=== PATIENT | male | born 1990 | race Caucasian/White ===

== ENCOUNTER 2023-06-21 22:11 | Emergency (ER) | payer OTHER, SELFPAY ==
--- NOTE | ~2023-06-21 | XR_ITS ---
EXAMINATION: XR ANKLE, LEFT CLINICAL INFORMATION: Ankle pain and swelling after injury COMPARISON: None available. TECHNIQUE: AP, lateral, and mortise views of the left ankle. FINDINGS: There is bilateral ankle swelling greater laterally. No acute fracture is seen. The ankle mortise appears stable. No ankle joint effusion is detected. 2 small osseous densities are seen distal to the medial malleolus, probably accessory ossicles. No erosions. Joint spaces are maintained. Soft tissues are normal. XR/XR ankle LT min 3V IMPRESSION: Soft tissue swelling without fracture.
[2023-06-21 22:17] VITALS: BP 116/70; PULSE 80; O2SAT 97; BMI 31.9
--- NOTE | 2023-06-21 22:46 | PC.NURSE ---
pt in clothes from [facility]. shirt switched to hospital gown from [facility]. otherwise no other belongings. pt calm/cooperative remains laying on stretcher. sitter at bedside.
--- NOTE | 2023-06-21 23:31 | ED_ITS ---
HPI - Extremity Injury (Lower) General Chief Complaint: Extremity Injury, Lower Stated Complaint: swollen ankle Time Seen by Provider: 06/21/23 22:21 Source: patient Mode of arrival: EMS Limitations: no limitations History of Present Illness HPI Narrative: Patient is a 33-year-old male who presents emergency department on a Section 12 / section 21 from [facility] reporting left ankle pain and swell ing after playing basketball this evening. Reports a twisting injury at approximately 20:00. Denies numbness, tingling, or cold sensation to the foot. Otherwise has no physical complaints. Review of Systems Review of Systems: Yes all other systems are reviewed and are negative [facility] Past Medical History Attestation statement: The following information was validated with the patient. Source: old records reviewed Social History Social History Advance Directives: No Advance Directives Information Provided: No Physical Exam Vital Signs: Vital Signs: Last Vital Signs Temp 98.3 F 06/22/23 00:10 Pulse 75 06/22/23 00:10 Resp 16 06/22/23 00:10 BP 125/77 06/22/23 00:10 Pulse Ox 98 06/22/23 00:10 O2 Del Method Room Air 06/22/23 00:10 BMI result Body Mass Index 31.9 Appearance: Alert.?Oriented to person, place and time. No acute distress.?Normal affect. Neck: Normal inspection.? Neck supple.?? CVS: Heart sounds normal. Normal heart rate and rhythm.? Pulses normal.?? Respiratory: No respiratory distress.? Lung sounds clear to auscultation bilaterally? Skin: Skin warm and dry.? Normal skin color.? Extremities: No lower extremity edema.? No calf ttp? no obvious deformity. 2+ DP/PT pulse bilaterally. Neuro: Moves all extremities spontaneously. Sensation intact bilaterally. Ambulates with antalgic gait. Medical Decision Making Medical Decision Making MDM Narrative: Patient is a 33-year-old male past medical history of schizoaffective disorder presenting to emergency department from inpatient psychiatric facility; [facility] via EMS for evaluation of traumatic left ankle pain and swelling after a twisting injury while playing basketball this evening. Received acetaminophen at 21:30, with some improvement in pain. Upon examination, the extremities neurovascularly intact distally, localized swelling, XR imaging obtained which reveals no acute fracture dislocation. Pain secondary to ankle sprain. Eduardo bandage was applied, ambulatory with steady gait. Stable for discharge back to inpatient psychiatric facility. Acetaminophen/ibuprofen for pain management.. Differential Diagnosis Differential Diagnoses: The differential diagnosis associated with the presentation includes (Fracture, dislocation, sprain. History and physical examination not consistent with DVT) Independent Interpretation I performed an independent interpretation of an: Plain X-Ray (I personally interpreted XR imaging and agree with radiologist impression) Radiology Impression Discussion of test interpretation with radiology: I have reviewed the radiologist's reading. Radiologist Impression: XR/XR ankle LT min 3V IMPRESSION: Soft tissue swelling without fracture. External Record Review External record reviewed: Inpatient record Prescription Management I considered prescription management with: Pain Medication (Aceta minophen/ibuprofen) Discharge Plan Discharge Clinical Impression: Ankle sprain Patient Disposition: Xfer Psychiatric [facility]osp Transfer Details: Anthony Instructions: Ankle Sprain (ED), R.I.C.E. Treatment (ED) Additional Instructions: Be sure to rest, apply ice to the area for 10-15 minutes 3-4 times daily, use Eduardo bandage for compression, elevation of the foot above the level of the chest while resting. You can take ibuprofen 200 mg, 3 tablets (600mg) every 6-8 hours as needed for pain, in addition to Tylenol 500 mg, 2 tablets (1,000mg) every 4-6 hours as needed for pain, but not to exceed 3 doses daily (3,000mg).? Follow-up with your primary care provider. Interventions: Acute Care Transfer Worksheet (ED) Last Done: 06/22/23 01:29 Discharge Date/Time: 06/22/23 01:30
[2023-06-22 00:10] VITALS: BP 125/77; PULSE 75; RESP 16; TEMP 36.8; O2SAT 98
--- NOTE | 2023-06-22 00:36 | PC.NURSE ---
ra bandage applied to L. foot/ankle per Mikhail SCARFER. +csm.
--- NOTE | 2023-06-22 00:38 | PC.NURSE ---
report given to wood dickson.
== END 2023-06-22 01:30 ==
PROVIDERS: Emergency Provider Emergency Medicine
DX: S93.402A Sprain of unspecified ligament of left ankle, initial encounter (principal); X50.1XXA Overexertion from prolonged static or awkward postures, initial encounter; Y93.67 Activity, basketball; Y92.9 Unspecified place or not applicable; Y99.9 Unspecified external cause status
CPT/HCPCS: 73610; 99283; 99285